=== PATIENT | female | born 1995 | race Caucasian/White ===

== ENCOUNTER 2019-08-15 02:51 | Emergency (ER) | payer OTHER ==
[2019-08-15 02:56] VITALS: BP 147/83; PULSE 80; TEMP 98; BMI 29.2
--- NOTE | 2019-08-15 03:09 | PDOC ---
History of Present Illness - General Chief Complaint: Vaginal Bleeding Stated Complaint: FELL ON ABDOMEN, AND BLEEDING Time Seen by Provider: 08/15/19 02:53 - History of Present Illness Initial Comments: 08/15/19 03:14 This otherwise healthy 24-year-old woman LMP 06/28/2019 presents with vaginal spotting after a fall today. Patient states approximately 12 hours prior to presentation, she slipped on wet surface at the entrance of her gym. Patient fell prone, striking her abdomen on the floor. No head/neck injury and she denies loss of consciousness. She noted abdominal discomfort immediately after the fall; when she returned home approximately 1 hour later, she had vaginal bleeding which continued for several hours intermittently. Bleeding appeared to stop but just prior to arriving in the emergency room she again noted some spotting. She describes lower abdominal pain as cramping "like my period is beginning". No previous bleeding or pain associated with this . The patient had positive home urine test; she has not yet had her first obstetrical evaluation No daily medications No known allergies Denies smoking/daily alcohol or other recreational drug use Past History - Past Medical History Allergies/Adverse Reactions: Allergies Allergy/AdvReac Type Severity Reaction Status Date / Time No Known Allergies Allergy Verified 08/15/19 02:52 Home Medications: Ambulatory Orders NK [No Known Home Medication] 08/15/19 COPD: No Other medical history: DENIES - Psycho Social/Smoking Cessation Hx Smoking History: Never smoked Have you smoked in the past 12 months: No Information on smoking cessation initiated: No Hx Alcohol Use: No Drug/Substance Use Hx: No Review of Systems - Review of Systems Able to Perform ROS?: Yes Comments:: 12 point review of systems is negative except for what is noted in the history of present illness *Physical Exam - Vital Signs Last Vital Signs Temp Pulse Resp BP Pulse Ox 98 F 80 16 147/83 100 08/15/19 02:53 08/15/19 02:53 08/15/19 02:53 08/15/19 02:53 08/15/19 02:53 - Physical Exam Comments: GENERAL: Adult female, alert and oriented x3, no acute distress HEAD: Normal with no signs of trauma. ABDOMEN:.normal bowel sounds. mild suprapubic tenderness no guarding or rebound.No masses No distention. PELVIC: Normal female external genitalia; no blood or clots seen in vaginal vault. Cervical os closed. EXTREMITIES: Normal range of motion, no edema. No clubbing or cyanosis. No erythema, or tenderness. NEUROLOGICAL: Cranial nerves II through XII grossly intact. Normal speech. No focal neurological deficits. MUSCULOSKELETAL: Back non-tender to palpation, no CVA tenderness SKIN: Warm, Dry, normal turgor, no rashes or lesions noted. Medical Decision Making - Medical Decision Making Urine test is positive Calculating from LMP, would be 5-6 weeks gestation. Ultrasound at this early stage may not clearly define gestational structures or have a measurable heart rate. Patient was advised that we may not know definitively whether she is having a miscarriage. Patient understood this and asked to have an ultrasound stating that she was "unsure" of her LMP date and may actually be later in the . Ultrasound performed: Preliminary interpretation by Imaging on Callsingle intrauterine with heart rate measured at 75/min. pole is identified. No subchorionic bleed identified. No free fluid seen. Results discussed with the patient and her fianc. Although no distinct evidence for miscarriage is present on ultrasound, it is still a possibility. Patient asked for referral for product development chemist: Referral information for Dr. Griggs given to her. Patient should call the office in the morning to arrange for follow-up in the next few days. Meanwhile, she should avoid strenuous activity and get plenty of rest. If she has severe bleeding or persistent severe pain, she should return to an emergency room Discharge - Discharge Information Problems reviewed: Yes Clinical Impression/Diagnosis: Threatened Condition: Stable Disposition: HOME - Follow up/Referral Referrals: Radu Griggs MD [Staff Physician] - Call tomorrow - Patient Discharge Instructions Patient Printed Discharge Instructions: Threatened Additional Instructions: Avoid strenuous exercise for the next several days Get plenty of rest and eat regular meals Drink plenty water Call product development chemist () office in the a.m. to arrange follow-up within the next 2 days Return to ER if you have severe pain or heavy bleeding - Post Discharge Activity
== END 2019-08-15 04:46 | disposition home or self-care (01) ==
LOC: FER 02:51
DX: O20.0 Threatened abortion (principal); Z3A.01 Less than 8 weeks gestation of pregnancy; W01.0XXA Fall on same level from slipping, tripping and stumbling without subsequent striking against object, initial encounter; Y93.01 Activity, walking, marching and hiking; Y92.39 Other specified sports and athletic area as the place of occurrence of the external cause
CPT/HCPCS: 76801-TC; 81025; 99281-25

== ENCOUNTER 2019-08-20 12:46 | Emergency (ER) | payer OTHER ==
[2019-08-20 12:54] VITALS: BMI 29.2
--- NOTE | 2019-08-20 13:11 | PDOC ---
History of Present Illness - General Chief Complaint: Vaginal Bleeding Stated Complaint: VAGINAL BLEEDING Time Seen by Provider: 08/20/19 12:50 History Source: Patient Exam Limitations: No Limitations - History of Present Illness Travel History: No Initial Comments: 08/20/19 13:03 24y F at approximately 9 weeks by dates gestation presents with complaint of lower abd cramping and bleeding. Pt had a fall last week followed by vag spotting, had come to the ED for evaluation with an IUP and FHR of 175, nad has been at baseline until last night when she had cramping followed by clots last night. The bleeding had slowed down to about the amount of a period and pt notes jillian mild cramping currently. pt denies any fever/chills, n/v, back pain, dysuria. Corn Cutter: Dr. Griggs ROS: Constitutional - no reported Fever, Chills, HEENT: no reported vision changes, sore throat Respiratory: no reported cough, sob, hemoptysis Cardiac: no reported chest pain, palpitations, light headedness, leg swelling Abd/GI: +lower abd pain/cramping, no reported nausea, vomiting, blood per rectum , melena, diarrhea : +vag bleeding no reported dysuria, frequency, discharge Musculskelatal - no reported back pain, joint swelling skin - no reported bruising, erythema, rash neurological: no reported headache, numbness, focal weakness, tingling, ataxia, hematologic: no reported easy bruising, easy bleeding Physical exam: GENERAL: The patient is awake, alert, and fully oriented, Nontoxic - in no acute distress. HEAD: Normocephalic, atraumatic. EYES: extraocular movements intact, sclera anicteric, conjunctiva clear. ENT: Normal voice, Moist mucous membranes. NECK: Normal range of motion, supple LUNGS: Breath sounds equal, clear to auscultation bilaterally. No wheezes, no rhonchi, no rales. HEART: Regular rate and rhythm, normal S1 and S2 without murmur, rub or gallop. ABDOMEN: Soft, minimal suprapubic tendernerness, No guarding, no rebound. No CVA tenderness EXTREMITIES: Normal range of motion, no edema. NEUROLOGICAL: No facial assymetry, Normal speech, PSYCH: Normal mood, normal affect. SKIN: Warm, Dry, normal turgor, Pt refused Pelvic exam concern for posible threatened ab vs completed ab will obtain preg US, t&s, beta Past History - Past Medical History Allergies/Adverse Reactions: Allergies Allergy/AdvReac Type Severity Reaction Status Date / Time No Known Allergies Allergy Verified 08/20/19 12:50 Home Medications: Ambulatory Orders NK [No Known Home Medication] 08/15/19 COPD: No - Psycho Social/Smoking Cessation Hx Smoking History: Never smoked Have you smoked in the past 12 months: No Hx Alcohol Use: No Drug/Substance Use Hx: No *Physical Exam - Vital Signs Last Vital Signs Temp Pulse Resp BP Pulse Ox 98.3 F 96 H 18 140/85 100 08/20/19 12:49 08/20/19 12:49 08/20/19 12:49 08/20/19 12:49 08/20/19 12:49 ED Treatment Course - LABORATORY CBC & Chemistry Diagram: 08/20/19 13:05 - RADIOLOGY Radiology Studies Ordered: Category Date Time Status <14WKS US [US] Stat Ultrasound 08/20/19 13:00 Ordered Medical Decision Making - Medical Decision Making 08/20/19 15:02 The patient's ultrasound results reviewed There is no IUP noted exam Consistent with missed . There is some focal Heterogeneity within the endometrial cavity and the lower uterine segment likely representing blood clots versus products of conception. Patient notes she is not in any pain at this point and does have some mild bleeding approximately of a period. We will have her follow-up with Dr. Griggs for further management return precautions were discussed. I discussed the physical exam findings, ancillary test results and final diagnoses with the patient. I answered all of the patient's questions. The patient was satisfied with the care received and felt comfortable with the discharge plan and treatment plan. The patient will call their primary care physician within 24 hours to arrange follow-up and will return to the Emergency Department with any new, persistent or worsening symptoms. 08/20/19 15:39 dr. zapata was paged. awaiting call back pt rquests leaving prior to me tealking to him states her bleeding is slightly more than a period, +spotting, not soaked/damp pads. no signs o fanemia she has an appt with dr. servin on - will have her fu tomorrow Discharge - Discharge Information Problems reviewed: Yes Clinical Impression/Diagnosis: Completed inevitable Condition: Improved Disposition: HOME - Admission No - Follow up/Referral Referrals: Radu Griggs MD [Staff Physician] - - Patient Discharge Instructions Patient Printed Discharge Instructions: DI for Miscarriage Additional Instructions: Please return to the emergency department if you have worsening bleeding, abdominal pain, fever, chills or any complaints. Please follow-up with Dr. Anson hughes for further evaluation. Print Language: ROMANSH - Post Discharge Activity
[2019-08-20 13:23] LABS: BASO % 1.7 % (0-2.0); EOS % 1.7 % (0-4.5); HEMATOCRIT 42.5 % (32.4-45.2); HEMOGLOBIN 14.3 GM/dl (10.7-15.3); LYMPH % 17.6 % (8-40); MCH 30.6 pg (25.7-33.7); MCHC 33.6 g/dl (32.0-36.0); MEAN PLT VOLUME 7.7 fl (7.5-11.1); MONO % 3.9 % (3.8-10.2); NEUT % 75.1 % (42.8-82.8); PLATELET COUNT 364 K/MM3 (134-434); RBC 4.67 M/mm3 (3.60-5.2); RDW 12.1 % (11.6-15.6); WHITE BLOOD COUNT 9.7 K/mm3 (4.0-10.8)
[2019-08-20 13:33] LABS: EPITHELIAL CELLS MODERATE /hpf
[2019-08-20 15:48] VITALS: BP 118/71; PULSE 91; TEMP 98.7
== END 2019-08-20 15:48 | disposition home or self-care (01) ==
LOC: FER 12:46
DX: O02.1 Missed abortion (principal)
CPT/HCPCS: 36415; 76801-TC; 81003; 81015; 84702; 84703; 85025; 86850; 86900; 86901; 99283-25